=== PATIENT | male | born 1950 | race Caucasian/White ===

== ENCOUNTER 2016-11-25 19:35 | Emergency (ER) | payer OTHER ==
[~2016-11-25] VITALS: Ht 170.2 cm; Wt 106.6 kg
== END 2016-11-25 20:30 | disposition short-term general hospital (02) ==
LOC: ER 19:35
DX: R22.41 Localized swelling, mass and lump, right lower limb (principal); R58 Hemorrhage, not elsewhere classified; Z79.899 Other long term (current) drug therapy
CPT/HCPCS: J1170; J2270; J2405